=== PATIENT | male | born 1935 | race Caucasian/White ===

== ENCOUNTER 2020-07-20 15:52 | Inpatient (IN) ==
[2020-07-20] MEDS: Sennosides 8.6 MG TABLET PO SCH (20:19)
[2020-07-21 06:10] LABS: Basophils % 0.5 %; Eosinophils # 0.3 K/mcL (0.0-0.6); Eosinophils % 3.5 %; Hematocrit 40.3 % (37.5-50.1); Hemoglobin 13.5 g/dL (12.9-16.9); Immature Granulocytes % 0.2 % (0-4); Lymphocytes # 1.5 K/mcL (0.6-4.6); Mean Corpuscular HGB Conc 33.5 g/dL (31.6-35.5); Mean Corpuscular Hemoglobin 30.5 pg (28.0-33.3); Mean Corpuscular Volume 91.2 fL (83.0-100.0); Mean Platelet Volume 10.2 fL (9.4-12.4); Monocytes # 0.7 K/mcL (0.0-1.3); Monocytes % 8.1 %; Neutrophils # 5.6 K/mcL (1.6-8.9); Platelet Count 151 K/mcL (140-400); Red Blood Count 4.42 M/mcL (4.19-5.50); Red Cell Distribution Width 13.3 % (11.5-14.5); Segmented Neutrophils % 69.7 %; White Blood Count 8.1 K/mcL (4.3-11.1)
[2020-07-21 06:29] LABS: BUN/Creatinine Ratio 22 (6-26); Blood Urea Nitrogen 27 mg/dL (8-23); Carbon Dioxide 29 mEq/L (23-29); Chloride 103 mEq/L (98-107); Glucose 106 mg/dL (70-105); Osmolality,Calculated 290 (280-300); Potassium 4.3 mEq/L (3.5-5.1); Sodium 137 mEq/L (136-145); eGFR For African Americans > 60 (> 60); eGFR For Non-African Americans 55 (> 60)
[2020-07-21] MEDS: Sennosides 8.6 MG TABLET PO SCH (08:56)
[2020-07-21] MEDS: Aspirin Enteric Coated 81 MG Tablet PO SCH (08:57)
[2020-07-21] MEDS: (Linaclotide [Linzess] 145 MCG) PO SCH (08:57)
[2020-07-21] MEDS: lisinopriL 20 MG TABLET PO SCH (08:57)
[2020-07-21] MEDS ORDERED: Lactulose Oral Soln 20 GM/30 ML UDC PO PRN (09:49)
[2020-07-21] MEDS ORDERED: Bisacodyl 10 MG RECTAL SUPPOSITORY RC PRN (09:50)
[2020-07-21] MEDS ORDERED: Sennosides/Docusate Sodium TABLET PO SCH (10:00)
[2020-07-21] MEDS: polyethylene glycoL 3350 17 GM POWD.PACK PO SCH (10:15)
[2020-07-21] MEDS: calcium polycarbophiL 625 MG TABLET PO SCH (15:44)
[2020-07-21] MEDS ORDERED: LINZESS PO ONE (17:55)
[2020-07-21] MEDS: Sennosides/Docusate Sodium TABLET PO PRN (20:12)
[2020-07-22] MEDS: lisinopriL 20 MG TABLET PO SCH (08:54)
[2020-07-22] MEDS: Aspirin Enteric Coated 81 MG Tablet PO SCH (08:54)
[2020-07-22] MEDS: calcium polycarbophiL 625 MG TABLET PO SCH (08:54)
[2020-07-22] MEDS: (Linaclotide [Linzess] 145 MCG) PO SCH ×2 (08:54→21:52)
[2020-07-22] MEDS: polyethylene glycoL 3350 17 GM POWD.PACK PO SCH (08:55)
[2020-07-22] MEDS: Ondansetron ODT 4 MG TAB.RAPDIS SL PRN (14:30)
[2020-07-23] MEDS: calcium polycarbophiL 625 MG TABLET PO SCH (08:02)
[2020-07-23] MEDS: polyethylene glycoL 3350 17 GM POWD.PACK PO SCH (08:02)
[2020-07-23] MEDS: lisinopriL 20 MG TABLET PO SCH (08:03)
[2020-07-23] MEDS: (Linaclotide [Linzess] 145 MCG) PO SCH (08:03)
[2020-07-23] MEDS: Acetaminophen 325 MG TABLET PO PRN ×2 (15:50→21:21)
[2020-07-24 06:02] LABS: Hemoglobin 12.7 g/dL (12.9-16.9); Mean Corpuscular HGB Conc 33.4 g/dL (31.6-35.5); Mean Corpuscular Hemoglobin 30.6 pg (28.0-33.3); Mean Corpuscular Volume 91.6 fL (83.0-100.0); Mean Platelet Volume 10.6 fL (9.4-12.4); Platelet Count 153 K/mcL (140-400); Red Blood Count 4.15 M/mcL (4.19-5.50); Red Cell Distribution Width 13.2 % (11.5-14.5); White Blood Count 6.7 K/mcL (4.3-11.1)
[2020-07-24 06:45] LABS: Alanine Aminotransferase 45 Units/L (7-52); Albumin 3.4 g/dL (3.5-5.7); Albumin/Globulin Ratio 1.2 (1.1-2.2); Alkaline Phosphatase 84 Units/L (34-104); Aspartate Amino Transferase 32 Units/L (13-39); BUN/Creatinine Ratio 24 (6-26); Bilirubin,Total 0.7 mg/dL (0.3-1.0); Blood Urea Nitrogen 25 mg/dL (8-23); Calcium 8.7 mg/dL (8.6-10.3); Carbon Dioxide 29 mEq/L (23-29); Chloride 104 mEq/L (98-107); Globulin 2.9 g/dL (2.4-3.5); Glucose 102 mg/dL (70-105); Osmolality,Calculated 287 (280-300); Potassium 4.2 mEq/L (3.5-5.1); Sodium 136 mEq/L (136-145); Total Protein 6.3 g/dL (6.4-8.9); eGFR For African Americans > 60 (> 60); eGFR For Non-African Americans > 60 (> 60)
[2020-07-24] MEDS: calcium polycarbophiL 625 MG TABLET PO SCH (08:45)
[2020-07-24] MEDS: Aspirin Enteric Coated 81 MG Tablet PO SCH (08:46)
[2020-07-24] MEDS: polyethylene glycoL 3350 17 GM POWD.PACK PO SCH (08:46)
[2020-07-24] MEDS: (Linaclotide [Linzess] 145 MCG) PO SCH (08:51)
[2020-07-24] MEDS: lisinopriL 20 MG TABLET PO SCH ×2 (08:51→20:27)
[2020-07-24] MEDS ORDERED: lisinopriL 20 MG TABLET PO SCH (09:00)
[2020-07-24] MEDS: Acetaminophen 325 MG TABLET PO PRN (23:49)
[2020-07-25] MEDS: Aspirin Enteric Coated 81 MG Tablet PO SCH (08:36)
[2020-07-25] MEDS: lisinopriL 20 MG TABLET PO SCH ×2 (08:37→19:34)
[2020-07-25] MEDS: calcium polycarbophiL 625 MG TABLET PO SCH (08:37)
[2020-07-25] MEDS: polyethylene glycoL 3350 17 GM POWD.PACK PO SCH (08:37)
[2020-07-25] MEDS: (Linaclotide [Linzess] 145 MCG) PO SCH (08:37)
[2020-07-25] MEDS: Ondansetron ODT 4 MG TAB.RAPDIS SL PRN (14:08)
[2020-07-25] MEDS: Acetaminophen 325 MG TABLET PO PRN (16:48)
[2020-07-25] MEDS: Sennosides/Docusate Sodium TABLET PO PRN (19:34)
[2020-07-26] MEDS: calcium polycarbophiL 625 MG TABLET PO SCH (08:12)
[2020-07-26] MEDS: Aspirin 325 MG TABLET PO SCH (08:12)
[2020-07-26] MEDS: polyethylene glycoL 3350 17 GM POWD.PACK PO SCH (08:12)
[2020-07-26] MEDS: lisinopriL 20 MG TABLET PO SCH ×2 (08:13→19:55)
[2020-07-26] MEDS: (Linaclotide [Linzess] 145 MCG) PO SCH (08:15)
[2020-07-26] MEDS: Acetaminophen 325 MG TABLET PO PRN (10:45)
[2020-07-26] MEDS: Ondansetron ODT 4 MG TAB.RAPDIS SL PRN (17:43)
[2020-07-26] MEDS: Sennosides/Docusate Sodium TABLET PO PRN (19:55)
[2020-07-27] MEDS: (Linaclotide [Linzess] 145 MCG) PO SCH (08:28)
[2020-07-27] MEDS: polyethylene glycoL 3350 17 GM POWD.PACK PO SCH (08:28)
[2020-07-27] MEDS: Aspirin 325 MG TABLET PO SCH (08:29)
[2020-07-27] MEDS: calcium polycarbophiL 625 MG TABLET PO SCH (08:29)
[2020-07-27] MEDS: lisinopriL 20 MG TABLET PO SCH ×2 (08:29→20:15)
[2020-07-27] MEDS: Acetaminophen 325 MG TABLET PO PRN (20:15)
[2020-07-28] MEDS: Aspirin 325 MG TABLET PO SCH (08:53)
[2020-07-28] MEDS: calcium polycarbophiL 625 MG TABLET PO SCH (08:53)
[2020-07-28] MEDS: lisinopriL 20 MG TABLET PO SCH ×2 (08:53→22:10)
[2020-07-28] MEDS: (Linaclotide [Linzess] 145 MCG) PO SCH (08:54)
[2020-07-28] MEDS: polyethylene glycoL 3350 17 GM POWD.PACK PO SCH (08:54)
[2020-07-28] MEDS: Acetaminophen 325 MG TABLET PO PRN (22:14)
[2020-07-29] MEDS: Aspirin 325 MG TABLET PO SCH (08:24)
[2020-07-29] MEDS: calcium polycarbophiL 625 MG TABLET PO SCH (08:25)
[2020-07-29] MEDS: lisinopriL 20 MG TABLET PO SCH ×2 (08:26→22:15)
[2020-07-29] MEDS: (Linaclotide [Linzess] 145 MCG) PO SCH (08:30)
[2020-07-29] MEDS: polyethylene glycoL 3350 17 GM POWD.PACK PO SCH (08:30)
[2020-07-29] MEDS: Artificial Tears SOLN 15 ML BOTTLE BOTH EYES SCH (22:15)
[2020-07-29] MEDS: Acetaminophen 325 MG TABLET PO PRN (22:15)
[2020-07-30] MEDS: Aspirin 325 MG TABLET PO SCH (08:49)
[2020-07-30] MEDS: polyethylene glycoL 3350 17 GM POWD.PACK PO SCH (08:49)
[2020-07-30] MEDS: lisinopriL 20 MG TABLET PO SCH ×2 (08:49→20:35)
[2020-07-30] MEDS: calcium polycarbophiL 625 MG TABLET PO SCH (08:49)
[2020-07-30] MEDS: (Linaclotide [Linzess] 145 MCG) PO SCH (08:50)
[2020-07-30] MEDS: Artificial Tears SOLN 15 ML BOTTLE BOTH EYES SCH (20:35)
[2020-07-31] MEDS: Aspirin 325 MG TABLET PO SCH (08:28)
[2020-07-31] MEDS: calcium polycarbophiL 625 MG TABLET PO SCH (08:29)
[2020-07-31] MEDS: lisinopriL 20 MG TABLET PO SCH ×2 (08:29→20:36)
[2020-07-31] MEDS: polyethylene glycoL 3350 17 GM POWD.PACK PO SCH (08:29)
[2020-07-31] MEDS: (Linaclotide [Linzess] 145 MCG) PO SCH (19:21)
[2020-07-31] MEDS: Artificial Tears SOLN 15 ML BOTTLE BOTH EYES SCH (20:39)
[2020-08-01] MEDS: polyethylene glycoL 3350 17 GM POWD.PACK PO SCH (09:22)
[2020-08-01] MEDS: Aspirin 325 MG TABLET PO SCH (09:23)
[2020-08-01] MEDS: calcium polycarbophiL 625 MG TABLET PO SCH (09:23)
[2020-08-01] MEDS: lisinopriL 20 MG TABLET PO SCH ×2 (09:23→20:35)
[2020-08-01] MEDS: (Linaclotide [Linzess] 145 MCG) PO SCH (09:23)
[2020-08-01] MEDS: Artificial Tears SOLN 15 ML BOTTLE BOTH EYES SCH (20:36)
[2020-08-02 05:54] LABS: Hematocrit 37.8 % (37.5-50.1); Hemoglobin 12.8 g/dL (12.9-16.9); Mean Corpuscular HGB Conc 33.9 g/dL (31.6-35.5); Mean Corpuscular Hemoglobin 30.7 pg (28.0-33.3); Mean Corpuscular Volume 90.6 fL (83.0-100.0); Mean Platelet Volume 10.1 fL (9.4-12.4); Platelet Count 177 K/mcL (140-400); Red Blood Count 4.17 M/mcL (4.19-5.50); Red Cell Distribution Width 13.2 % (11.5-14.5); White Blood Count 7.6 K/mcL (4.3-11.1)
[2020-08-02 06:03] LABS: BUN/Creatinine Ratio 18 (6-26); Blood Urea Nitrogen 20 mg/dL (8-23); Calcium 9.2 mg/dL (8.6-10.3); Carbon Dioxide 27 mEq/L (23-29); Chloride 104 mEq/L (98-107); Glucose 101 mg/dL (70-105); Osmolality,Calculated 287 (280-300); Potassium 4.1 mEq/L (3.5-5.1); Sodium 137 mEq/L (136-145); eGFR For African Americans > 60 (> 60); eGFR For Non-African Americans > 60 (> 60)
[2020-08-02] MEDS: Aspirin 325 MG TABLET PO SCH (08:30)
[2020-08-02] MEDS: lisinopriL 20 MG TABLET PO SCH ×2 (08:30→21:10)
[2020-08-02] MEDS: calcium polycarbophiL 625 MG TABLET PO SCH (08:31)
[2020-08-02] MEDS: polyethylene glycoL 3350 17 GM POWD.PACK PO SCH (08:35)
[2020-08-02] MEDS: (Linaclotide [Linzess] 145 MCG) PO SCH (08:36)
[2020-08-02] MEDS: Artificial Tears SOLN 15 ML BOTTLE BOTH EYES SCH (21:10)
[2020-08-03] MEDS: lisinopriL 20 MG TABLET PO SCH ×2 (08:55→20:53)
[2020-08-03] MEDS: Aspirin 325 MG TABLET PO SCH (08:55)
[2020-08-03] MEDS: calcium polycarbophiL 625 MG TABLET PO SCH (08:56)
[2020-08-03] MEDS: polyethylene glycoL 3350 17 GM POWD.PACK PO SCH (09:00)
[2020-08-03] MEDS: (Linaclotide [Linzess] 145 MCG) PO SCH (09:00)
[2020-08-03] MEDS: Artificial Tears SOLN 15 ML BOTTLE BOTH EYES SCH (20:54)
[2020-08-04] MEDS: Aspirin 325 MG TABLET PO SCH (08:33)
[2020-08-04] MEDS: lisinopriL 20 MG TABLET PO SCH ×2 (08:33→19:56)
[2020-08-04] MEDS: polyethylene glycoL 3350 17 GM POWD.PACK PO SCH (08:33)
[2020-08-04] MEDS: calcium polycarbophiL 625 MG TABLET PO SCH (08:33)
[2020-08-04] MEDS: (Linaclotide [Linzess] 145 MCG) PO SCH (08:34)
[2020-08-04] MEDS: Acetaminophen 325 MG TABLET PO PRN (08:36)
[2020-08-04] MEDS: Artificial Tears SOLN 15 ML BOTTLE BOTH EYES SCH (19:56)
[2020-08-05] MEDS: lisinopriL 20 MG TABLET PO SCH ×2 (08:45→19:56)
[2020-08-05] MEDS: Aspirin 325 MG TABLET PO SCH (08:45)
[2020-08-05] MEDS: calcium polycarbophiL 625 MG TABLET PO SCH (08:45)
[2020-08-05] MEDS: (Linaclotide [Linzess] 145 MCG) PO SCH (08:46)
[2020-08-05] MEDS: polyethylene glycoL 3350 17 GM POWD.PACK PO SCH (08:46)
[2020-08-05] MEDS: Artificial Tears SOLN 15 ML BOTTLE BOTH EYES SCH (19:56)
[2020-08-06] MEDS: Aspirin 325 MG TABLET PO SCH (09:01)
[2020-08-06] MEDS: calcium polycarbophiL 625 MG TABLET PO SCH (09:01)
[2020-08-06] MEDS: lisinopriL 20 MG TABLET PO SCH ×2 (09:01→20:11)
[2020-08-06] MEDS: (Linaclotide [Linzess] 145 MCG) PO SCH (09:02)
[2020-08-06] MEDS: polyethylene glycoL 3350 17 GM POWD.PACK PO SCH (09:02)
[2020-08-06] MEDS: Acetaminophen 325 MG TABLET PO PRN (18:56)
[2020-08-06] MEDS: Artificial Tears SOLN 15 ML BOTTLE BOTH EYES SCH (20:12)
[2020-08-07] MEDS: (Linaclotide [Linzess] 145 MCG) PO SCH (08:35)
[2020-08-07] MEDS: polyethylene glycoL 3350 17 GM POWD.PACK PO SCH (08:35)
[2020-08-07] MEDS: lisinopriL 20 MG TABLET PO SCH ×2 (08:40→20:25)
[2020-08-07] MEDS: calcium polycarbophiL 625 MG TABLET PO SCH (08:40)
[2020-08-07] MEDS: Aspirin 325 MG TABLET PO SCH (08:40)
[2020-08-07] MEDS: Ondansetron ODT 4 MG TAB.RAPDIS SL PRN (17:26)
[2020-08-07] MEDS: Artificial Tears SOLN 15 ML BOTTLE BOTH EYES SCH (20:26)
[2020-08-07] MEDS: Acetaminophen 325 MG TABLET PO PRN (20:52)
[2020-08-08] MEDS: calcium polycarbophiL 625 MG TABLET PO SCH (09:50)
[2020-08-08] MEDS: lisinopriL 20 MG TABLET PO SCH ×2 (09:51→19:40)
[2020-08-08] MEDS: (Linaclotide [Linzess] 145 MCG) PO SCH (09:51)
[2020-08-08] MEDS: polyethylene glycoL 3350 17 GM POWD.PACK PO SCH (09:51)
[2020-08-08] MEDS: Aspirin 325 MG TABLET PO SCH (09:51)
[2020-08-08] MEDS: Acetaminophen 325 MG TABLET PO PRN (19:40)
[2020-08-08] MEDS: Artificial Tears SOLN 15 ML BOTTLE BOTH EYES SCH (19:41)
[2020-08-09] MEDS: calcium polycarbophiL 625 MG TABLET PO SCH (09:05)
[2020-08-09] MEDS: Aspirin 325 MG TABLET PO SCH (09:05)
[2020-08-09] MEDS: lisinopriL 20 MG TABLET PO SCH ×2 (09:05→19:42)
[2020-08-09] MEDS: (Linaclotide [Linzess] 145 MCG) PO SCH (10:27)
[2020-08-09] MEDS: polyethylene glycoL 3350 17 GM POWD.PACK PO SCH (10:27)
[2020-08-09] MEDS: Acetaminophen 325 MG TABLET PO PRN (19:42)
[2020-08-09] MEDS: Artificial Tears SOLN 15 ML BOTTLE BOTH EYES SCH (19:43)
[2020-08-10] MEDS: Aspirin 325 MG TABLET PO SCH (08:44)
[2020-08-10] MEDS: lisinopriL 20 MG TABLET PO SCH ×2 (08:45→21:09)
[2020-08-10] MEDS: calcium polycarbophiL 625 MG TABLET PO SCH (08:45)
[2020-08-10] MEDS: polyethylene glycoL 3350 17 GM POWD.PACK PO SCH (08:51)
[2020-08-10] MEDS: (Linaclotide [Linzess] 145 MCG) PO SCH (08:51)
[2020-08-10] MEDS: Acetaminophen 325 MG TABLET PO PRN (21:10)
[2020-08-10] MEDS: Artificial Tears SOLN 15 ML BOTTLE BOTH EYES SCH (21:10)
[2020-08-11] MEDS: lisinopriL 20 MG TABLET PO SCH ×2 (08:37→20:42)
[2020-08-11] MEDS: Aspirin 325 MG TABLET PO SCH (08:37)
[2020-08-11] MEDS: polyethylene glycoL 3350 17 GM POWD.PACK PO SCH (08:37)
[2020-08-11] MEDS: calcium polycarbophiL 625 MG TABLET PO SCH (08:37)
[2020-08-11] MEDS: (Linaclotide [Linzess] 145 MCG) PO SCH (08:38)
[2020-08-11] MEDS: Acetaminophen 325 MG TABLET PO PRN (20:42)
[2020-08-11] MEDS: Artificial Tears SOLN 15 ML BOTTLE BOTH EYES SCH (20:43)
[2020-08-12] MEDS: calcium polycarbophiL 625 MG TABLET PO SCH (08:25)
[2020-08-12] MEDS: Aspirin 325 MG TABLET PO SCH (08:26)
[2020-08-12] MEDS: lisinopriL 20 MG TABLET PO SCH ×2 (08:26→20:00)
[2020-08-12] MEDS: (Linaclotide [Linzess] 145 MCG) PO SCH (08:28)
[2020-08-12] MEDS: polyethylene glycoL 3350 17 GM POWD.PACK PO SCH (08:28)
[2020-08-12] MEDS: Acetaminophen 325 MG TABLET PO PRN (20:00)
[2020-08-12] MEDS: Artificial Tears SOLN 15 ML BOTTLE BOTH EYES SCH (20:01)
[2020-08-13 05:36] LABS: Basophils % 0.5 %; Eosinophils # 0.3 K/mcL (0.0-0.6); Eosinophils % 5.2 %; Hematocrit 37.5 % (37.5-50.1); Hemoglobin 12.6 g/dL (12.9-16.9); Immature Granulocytes % 0.4 % (0-4); Lymphocytes # 1.4 K/mcL (0.6-4.6); Lymphocytes % 25.3 %; Mean Corpuscular HGB Conc 33.6 g/dL (31.6-35.5); Mean Corpuscular Hemoglobin 30.4 pg (28.0-33.3); Mean Corpuscular Volume 90.4 fL (83.0-100.0); Mean Platelet Volume 10.6 fL (9.4-12.4); Monocytes # 0.4 K/mcL (0.0-1.3); Monocytes % 7.3 %; Neutrophils # 3.5 K/mcL (1.6-8.9); Platelet Count 147 K/mcL (140-400); Red Blood Count 4.15 M/mcL (4.19-5.50); Red Cell Distribution Width 13.2 % (11.5-14.5); Segmented Neutrophils % 61.3 %; White Blood Count 5.6 K/mcL (4.3-11.1)
[2020-08-13 05:49] LABS: BUN/Creatinine Ratio 21 (6-26); Blood Urea Nitrogen 25 mg/dL (8-23); Calcium 8.9 mg/dL (8.6-10.3); Carbon Dioxide 28 mEq/L (23-29); Chloride 105 mEq/L (98-107); Glucose 96 mg/dL (70-105); Osmolality,Calculated 288 (280-300); Sodium 137 mEq/L (136-145); eGFR For African Americans > 60 (> 60); eGFR For Non-African Americans 58 (> 60)
[2020-08-13] MEDS: polyethylene glycoL 3350 17 GM POWD.PACK PO SCH (09:03)
[2020-08-13] MEDS: calcium polycarbophiL 625 MG TABLET PO SCH (09:03)
[2020-08-13] MEDS: lisinopriL 20 MG TABLET PO SCH ×2 (09:03→20:40)
[2020-08-13] MEDS: Aspirin 325 MG TABLET PO SCH (09:03)
[2020-08-13] MEDS: (Linaclotide [Linzess] 145 MCG) PO SCH (09:03)
[2020-08-13] MEDS: Artificial Tears SOLN 15 ML BOTTLE BOTH EYES SCH (20:40)
[2020-08-14] MEDS: polyethylene glycoL 3350 17 GM POWD.PACK PO SCH (08:27)
[2020-08-14] MEDS: Aspirin 325 MG TABLET PO SCH (08:28)
[2020-08-14] MEDS: lisinopriL 20 MG TABLET PO SCH ×2 (08:28→19:55)
[2020-08-14] MEDS: calcium polycarbophiL 625 MG TABLET PO SCH (08:28)
[2020-08-14] MEDS: (Linaclotide [Linzess] 145 MCG) PO SCH (08:29)
[2020-08-14] MEDS: Artificial Tears SOLN 15 ML BOTTLE BOTH EYES SCH (19:55)
[2020-08-14] MEDS: Acetaminophen 325 MG TABLET PO PRN (20:22)
[2020-08-15] MEDS: Aspirin 325 MG TABLET PO SCH (08:40)
[2020-08-15] MEDS: lisinopriL 20 MG TABLET PO SCH ×2 (08:40→20:06)
[2020-08-15] MEDS: calcium polycarbophiL 625 MG TABLET PO SCH (08:40)
[2020-08-15] MEDS: (Linaclotide [Linzess] 145 MCG) PO SCH (08:41)
[2020-08-15] MEDS: polyethylene glycoL 3350 17 GM POWD.PACK PO SCH (08:41)
[2020-08-15] MEDS: Artificial Tears SOLN 15 ML BOTTLE BOTH EYES SCH (20:07)
[2020-08-15] MEDS: Acetaminophen 325 MG TABLET PO PRN (20:11)
[2020-08-16] MEDS: lisinopriL 20 MG TABLET PO SCH ×2 (08:57→19:46)
[2020-08-16] MEDS: calcium polycarbophiL 625 MG TABLET PO SCH (08:57)
[2020-08-16] MEDS: Aspirin 325 MG TABLET PO SCH (08:57)
[2020-08-16] MEDS: polyethylene glycoL 3350 17 GM POWD.PACK PO SCH (09:06)
[2020-08-16] MEDS: (Linaclotide [Linzess] 145 MCG) PO SCH (09:06)
[2020-08-16] MEDS: Acetaminophen 325 MG TABLET PO PRN (19:45)
[2020-08-16] MEDS: Artificial Tears SOLN 15 ML BOTTLE BOTH EYES SCH (19:46)
[2020-08-17] MEDS: lisinopriL 20 MG TABLET PO SCH ×2 (09:15→19:54)
[2020-08-17] MEDS: calcium polycarbophiL 625 MG TABLET PO SCH (09:15)
[2020-08-17] MEDS: Aspirin 325 MG TABLET PO SCH (09:15)
[2020-08-17] MEDS: polyethylene glycoL 3350 17 GM POWD.PACK PO SCH (09:17)
[2020-08-17] MEDS: (Linaclotide [Linzess] 145 MCG) PO SCH (09:18)
[2020-08-17] MEDS: Artificial Tears SOLN 15 ML BOTTLE BOTH EYES SCH (19:55)
[2020-08-18] MEDS: calcium polycarbophiL 625 MG TABLET PO SCH (08:42)
[2020-08-18] MEDS: polyethylene glycoL 3350 17 GM POWD.PACK PO SCH (08:42)
[2020-08-18] MEDS: (Linaclotide [Linzess] 145 MCG) PO SCH (08:42)
[2020-08-18] MEDS: Aspirin 325 MG TABLET PO SCH (08:42)
[2020-08-18] MEDS: lisinopriL 20 MG TABLET PO SCH ×2 (08:42→20:20)
[2020-08-18] MEDS: Artificial Tears SOLN 15 ML BOTTLE BOTH EYES SCH (20:20)
[2020-08-19] MEDS: Aspirin 325 MG TABLET PO SCH (08:12)
[2020-08-19] MEDS: polyethylene glycoL 3350 17 GM POWD.PACK PO SCH (08:12)
[2020-08-19] MEDS: lisinopriL 20 MG TABLET PO SCH ×2 (08:12→20:46)
[2020-08-19] MEDS: calcium polycarbophiL 625 MG TABLET PO SCH (08:12)
[2020-08-19] MEDS: (Linaclotide [Linzess] 145 MCG) PO SCH (08:12)
[2020-08-19] MEDS: Artificial Tears SOLN 15 ML BOTTLE BOTH EYES SCH (20:46)
[2020-08-20] MEDS: lisinopriL 20 MG TABLET PO SCH ×3 (08:16→20:17)
[2020-08-20] MEDS: polyethylene glycoL 3350 17 GM POWD.PACK PO SCH (08:35)
[2020-08-20] MEDS: Aspirin 325 MG TABLET PO SCH (08:40)
[2020-08-20] MEDS: calcium polycarbophiL 625 MG TABLET PO SCH (08:40)
[2020-08-20] MEDS: (Linaclotide [Linzess] 145 MCG) PO SCH (08:40)
[2020-08-20] MEDS: Artificial Tears SOLN 15 ML BOTTLE BOTH EYES SCH (20:17)
[2020-08-21] MEDS: (Linaclotide [Linzess] 145 MCG) PO SCH (09:05)
[2020-08-21] MEDS: calcium polycarbophiL 625 MG TABLET PO SCH (09:06)
[2020-08-21] MEDS: lisinopriL 20 MG TABLET PO SCH ×2 (09:06→20:10)
[2020-08-21] MEDS: polyethylene glycoL 3350 17 GM POWD.PACK PO SCH (09:06)
[2020-08-21] MEDS: Aspirin 325 MG TABLET PO SCH (09:06)
[2020-08-21] MEDS: Artificial Tears SOLN 15 ML BOTTLE BOTH EYES SCH (20:11)
[2020-08-21] MEDS: Acetaminophen 325 MG TABLET PO PRN (20:34)
[2020-08-22] MEDS: calcium polycarbophiL 625 MG TABLET PO SCH (08:16)
[2020-08-22] MEDS: Aspirin 325 MG TABLET PO SCH (08:16)
[2020-08-22] MEDS: lisinopriL 20 MG TABLET PO SCH ×2 (08:17→20:20)
[2020-08-22] MEDS: (Linaclotide [Linzess] 145 MCG) PO SCH (08:17)
[2020-08-22] MEDS: polyethylene glycoL 3350 17 GM POWD.PACK PO SCH (08:17)
[2020-08-22] MEDS: Acetaminophen 325 MG TABLET PO PRN (20:20)
[2020-08-22] MEDS: Artificial Tears SOLN 15 ML BOTTLE BOTH EYES SCH (20:22)
[2020-08-23] MEDS: calcium polycarbophiL 625 MG TABLET PO SCH (09:12)
[2020-08-23] MEDS: (Linaclotide [Linzess] 145 MCG) PO SCH (09:12)
[2020-08-23] MEDS: lisinopriL 20 MG TABLET PO SCH ×2 (09:12→20:11)
[2020-08-23] MEDS: Aspirin 325 MG TABLET PO SCH (09:12)
[2020-08-23] MEDS: polyethylene glycoL 3350 17 GM POWD.PACK PO SCH (09:12)
[2020-08-23] MEDS: Artificial Tears SOLN 15 ML BOTTLE BOTH EYES SCH (20:11)
[2020-08-24 07:16] VITALS: BP 153/72
[2020-08-24] MEDS: Aspirin 325 MG TABLET PO SCH (10:01)
[2020-08-24] MEDS: lisinopriL 20 MG TABLET PO SCH (10:01)
[2020-08-24] MEDS: calcium polycarbophiL 625 MG TABLET PO SCH (10:01)
[2020-08-24] MEDS: (Linaclotide [Linzess] 145 MCG) PO SCH (10:02)
[2020-08-24] MEDS: polyethylene glycoL 3350 17 GM POWD.PACK PO SCH (10:05)
== END 2020-08-24 12:55 | disposition home health service (06) | DRG 57 ==
LOC: INPGRE 18:39
PROVIDERS: ADMIT Family Medicine; ATTEND Family Medicine